=== PATIENT | male | born 1940 | race Caucasian/White ===

== ENCOUNTER 2016-05-12 23:50 | Inpatient (IN) | payer MEDICARE, OTHER ==
--- NOTE | ~2016-05-12 | DS ---
Discharge Summary [facility] [address] [place]. [address] NAME: EVA MANNING : 40 STATUS : DIS IN PAT#: [id number] AGE: 76 ADM/REG DATE : 05/13/16 MR#: [id number] REPORT SERV DATE: 05/20/16 DICTATED BY: DATE: REPORT STATUS : Draft TRANSCRIBED BY: MODL DATE: 05/19/16 ADMISSION DATE: 05/13/2016 DISCHARGE DATE: 05/19/2016 DISCHARGE DIAGNOSES: 1. Acute kidney injury on chronic kidney disease, stage 3. 2. Atrial fibrillation with rapid ventricular response paroxysmal. 3. Influenza B. 4. Diabetes mellitus type 2. 5. Hypertension. 6. Obstructive sleep apnea with BiPAP therapy. 7. History of chronic obstructive pulmonary disease and asthma. 8. Dementia. 9. Chronic lower extremity ulcers. 10.Constipation. 11.Debility. CONSULTING PHYSICIANS: Include Dr. Ayanna Hobbs with Urology. DISCHARGE MEDICATIONS: 1. Januvia 50 mg p.o. b.i.d. 2. Aricept 10 mg p.o. at bedtime. 3. Neurontin 1200 mg p.o. at bedtime. 4. Neurontin 600 mg p.o. daily. 5. Remeron 300 mg p.o. at bedtime. 6. Multivitamin one tablet p.o. daily. 7. Lopressor 25 mg p.o. b.i.d., hold for heart rate less than 60 or systolic blood pressure less than 100. 8. Prilosec 20 mg p.o. b.i.d. 9. Trental 400 mg p.o. b.i.d. 10.Zoloft 100 mg p.o. daily. 11.VESIcare 5 mg p.o. daily. 12.MiraLAX one packet p.o. daily. 13.Klonopin 1 mg p.o. at bedtime. 14.Aleve 220 mg p.o. t.i.d. p.r.n. for pain. 15.[place] 10/325 mg tablet one tablet p.o. t.i.d. p.r.n. for pain. 16.Breo Ellipta one puff inhalation at bedtime. IMAGING: Includes portable chest x-ray which was negative. Renal ultrasound which demonstrated severe bilateral hydronephrosis and severely dilated bladder, diverticulum in the superior right bladder, nonobstructing left nephrolithiasis. Transthoracic echocardiogram was performed. The patient has normal left ventricular systolic function with an estimated ejection fraction of 55% to 60%. Normal right ventricular chamber size and systolic function. No significant valvular regurg or stenosis. Discharge Summary [address] [address] [place]. [address] NAME: EVA MANNING : 40 STATUS : DIS IN PAT#: [id number] AGE: 76 ADM/REG DATE : 05/13/16 MR#: [id number] REPORT SERV DATE: 05/20/16 DICTATED BY: DATE: REPORT STATUS : Draft TRANSCRIBED BY: MODL DATE: 05/19/16 For full H and P, please refer to Dr. Ahmet Ramirez's dictation on 05/12/2016. HOSPITAL COURSE/PROBLEM LIST: 1. Acute kidney injury on chronic kidney disease, stage 3. Based on the renal ultrasound which demonstrated that the patient had a postrenal obstruction causing severe hydronephrosis causing acute kidney injury. Today the patient's creatinine is down to 2.05, his baseline creatinine is around 1.5. He does have a Degroot catheter in place. 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 I have consulted Dr. Hobbs with Urology. The patient will need to be evaluated by him prior to discharge for future recommendations as far as fixing the artificial sphincter as well as whether we should discharge the patient with Degroot catheter or any other recommendations. 2. Atrial fibrillation with RVR. His heart rate is controlled. He is mostly in sinus rhythm. Occasionally has some paroxysmal atrial fibrillation a very short periods of time. His heart rate is controlled with metoprolol [address]., [address] the patient on Eliquis 5 mg p.o. b.i.d., as well. He will follow up as an outpatient with Cardiology. 3. Influenza B. The patient has received symptomatic care. I did start Tamiflu early on diagnosis; however, prior to renal ultrasound I got rid of the Tamiflu thinking he might have an intrarenal problem such as acute tubular necrosis. At any rate the patient's symptoms are better. 4. Diabetes mellitus type 2. We will keep the patient on his oral antidiabetic medications. His blood sugar has been controlled while in the hospital, generally with a blood sugar of 80 to 90. 5. Hypertension. The patient's blood pressure has been controlled. Last blood pressure 146/70. I will continue his metoprolol at discharge. 6. Obstructive sleep apnea with BiPAP. The patient is compliant. He will continue his BiPAP therapy. Follow up as an outpatient. 7. Dementia. The patient is at baseline. I will continue his home medications. 8. Chronic lower extremity ulcers. The patient is seeing Dr. Jimenez and he will follow up with him as an outpatient in the [facility] after discharge. 9. Constipation. This has resolved. We will continue MiraLAX daily as well as docusate. 10.Debility. The patient is being discharged to [facility] for rehabilitation prior to going home. 11.Asthma/COPD. The patient is on chronic O2 at night as well as Breo Ellipta, we will continue these. The patient is hemodynamically stable. Heart rate 77, respiratory rate 18, blood pressure 146/70, temp 97.5, and O2 saturation 97% on 2 L. CLR/MODL Quinton Matthews NP / [id number] Discharge Summary [address] [address] NAME: EVA MANNING : 40 STATUS : DIS IN PAT#: [id number] AGE: 76 ADM/REG DATE : 05/13/16 MR#: [id number] REPORT SERV DATE: 05/20/16 DICTATED BY: DATE: REPORT STATUS : Draft TRANSCRIBED BY: MODL DATE: 05/19/16 CC: MD Yossi Lopez M.D. Daniel Heithold, M.D. Mark Heinsohn, M.D.
--- NOTE | ~2016-05-12 | HP ---
History And Physical [id number] [place]. [address] NAME: EVA PEPPER : 40 STATUS : DIS IN PAT#: [id number] AGE: 76 ADM/REG DATE : 05/13/16 MR#: [id number] REPORT SERV DATE: 06/02/16 DICTATED BY: AHMET RIVERS DATE: 05/13/16 REPORT STATUS : Draft TRANSCRIBED BY: MODL DATE: 05/13/16 DATE OF ADMISSION: 05/12/2016 CHIEF COMPLAINT: Fever and chills. HISTORY OF PRESENT ILLNESS: This is a 76-year-old male with a history of immune- demyelinating motor and sensory neuropathy, familial spastic paraplegia, diabetes mellitus, and hypertension who presents to the emergency room at [facility] with the above-mentioned complaint. History is obtained from the patient, his , who is at bedside, and reviewing data available on the [employer] system. According to Mr. Pepper and his , he had been in his usual state of health until yesterday when he started having fever and shaking chills. His temperature at home was greater than 102 degrees Fahrenheit, and he had shaking as well. He might have been slightly confused as his says he kept insisting that she redo his dressings on the leg ulcer that he has. She was not sure why he was asking so many times. Finally, when he started having chills as well, they decided to come to the emergency room to be evaluated. In the emergency room, he initially presented with a blood pressure of 87/50, which quickly returned to normal range with some fluid bolus. He had cellulitis in his lower extremity, and Hospitalist Service is asked to admit him for further evaluation and treatment. At the time of my evaluation, he denied any chest pain, palpitations, or orthopnea. He had no cough, hemoptysis, night sweats, or weight loss. He denied any falls or loss of consciousness. No history of nausea, vomiting, diarrhea, diaphoresis. No history of hematemesis, hematochezia, or hematuria. No other history of recent travel or exposures. PAST MEDICAL HISTORY: Significant for history of diabetes mellitus type 2, essential hypertension, obstructive sleep apnea on BiPAP at home. He also has a history of immune- demyelinating motor and sensory neuropathy, familial spastic paraplegia, and prostate cancer. He has a history of asthma, chronic kidney disease stage 3, and malnutrition with a PEG placement as well. SOCIAL HISTORY: He has about 50 pack years of smoking and quit one year ago. He denied any recreational drug use or alcohol use. 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 FAMILY HISTORY: Noncontributory. MEDICATIONS: At home were reviewed by me in the chart today and reordered by me. REVIEW OF SYSTEMS: As in history of present illness. All other systems were reviewed in detail and are quite unremarkable. PHYSICAL EXAMINATION: History And Physical [address] [address] NAME: EVA PEPPER : 40 STATUS : DIS IN PAT#: [id number] AGE: 76 ADM/REG DATE : 05/13/16 MR#: [id number] REPORT SERV DATE: 06/02/16 DICTATED BY: AHMET RIVERS DATE: 05/13/16 REPORT STATUS : Draft TRANSCRIBED BY: ALFREDO DATE: 05/13/16 GENERAL: This is a pleasant 76-year old, not in any acute distress. He is alert, awake, oriented to time, place, and person. VITAL SIGNS: His vital signs today showed a temperature of 99 degrees Fahrenheit, pulse 80, respirations 16 a minute, blood pressure was 87/50 upon arrival. Oxygen saturations were 100% breathing 2 L of oxygen via nasal cannula. At the time of my exam, his blood pressure was greater than 139 systolic. HEENT: Head is atraumatic, normocephalic. Pupils are equal, reacting to light and accommodating. External ocular muscles are intact. Membranes are moist and pink. Sclerae are anicteric. NECK: Supple with no jugular venous distention, lymphadenopathy, or thyromegaly. LUNGS: Clear to auscultation with no wheezes, rubs, or crackles. HEART: Heart sounds were regular with no murmurs, rubs, or gallops. ABDOMEN: Soft, nontender. Bowel sounds present. EXTREMITIES: Examination of his lower extremities did not reveal any an acute edema, cyanosis, or clubbing. There are nonhealing ulcers in both lower extremities with very little discharge. There is redness and swelling in time in the area as well. NEUROLOGIC: Grossly intact. No focal sensory or motor deficits. Higher functions appeared intact. Gait was not examined. LABORATORY DATA: Reviewed on the [employer] system today showed a sodium of 141, potassium 4.7, chloride 108, CO2 of 25, BUN was 17 with a creatinine of 1.50, which is about his baseline. Blood glucose was 99 today. His lactate was 1.0. CBC showed white blood cell count of 7700, hemoglobin was 9.6, hematocrit 30.0, and platelet count was 165,000. His prothrombin time was 15.1 with an INR of 1.2. Urinalysis was unremarkable today. Films of the chest x-ray were reviewed by me on the PACS today and interpreted by me. Per my interpretation, there was normal bony architecture with no cardiomegaly. Lung pemberton were clear without any lobar consolidations or effusions. When compared to prior films available on PACs, today's films did not show any acute or significant change. IMPRESSION: 1. Fever and chills. 2. Cellulitis of the lower extremity. 3. Diabetes mellitus type 2. 4. Hypertension. 5. Obstructive sleep apnea on BiPAP therapy. 6. Asthma and chronic obstructive pulmonary disease. 7. Chronic kidney disease stage III, stable. 8. Malnutrition with the percutaneous endoscopic gastrostomy tube. PLAN: We will admit Mr. Pepper to the Hospitalist Service with [facility]. We will obtain cultures, start him on empiric IV antibiotics as he has about 10 bands now. We will go ahead and check his procalcitonin level as well. We will start him on blood sugar control with NovoLog given subcutaneously per sliding scale and check his A1c. We will also get chemistry electrolytes and replace as needed. For his lower extremity ulcers, we will consult Dr. Jimenez to see him in the morning. He has been under Dr. Jimenez's care all this time. Meanwhile, we will maximize the bronchodilator treatments and continue supplemental oxygen therapy. He had may continue his BiPAP while here as well. He will be History And Physical [address] [address] NAME: EVA PEPPER : 40 STATUS : DIS IN PAT#: [id number] AGE: 76 ADM/REG DATE : 05/13/16 MR#: [id number] REPORT SERV DATE: 06/02/16 DICTATED BY: AHMET RIVERS DATE: 05/13/16 REPORT STATUS : Draft TRANSCRIBED BY: ALFREDO DATE: 05/13/16 on unfractionated heparin for DVT prophylaxis while here. I have discussed the above plans with the patient and his . Questions were answered and they are agreeable to the above recommendations. Hospitalist Service will be following him during his stay here. /ALFREDO Ahmet Rivers M.D. / [id number] / [id number] CC: Yossi Aviles M.D.
--- NOTE | ~2016-05-12 | CN ---
Consultation Report [facility] [address] [place]. [address] NAME: EVA PEPPER : 40 STATUS : DIS IN PAT#: [id number] AGE: 76 ADM/REG DATE : 05/13/16 MR#: [id number] REPORT SERV DATE: 05/19/16 DICTATED BY: BONILLA FRANCISCO JR. DATE: 05/19/16 REPORT STATUS : Draft TRANSCRIBED BY: MODParul DATE: 05/19/16 DATE OF CONSULTATION: 05/19/2016 CHIEF COMPLAINT: Urinary retention. 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 Andrew Snyder. He has a history of prostate cancer, Adilson 6, status post prostatectomy at [facility] in 2006. He had postoperative ED and stress urinary incontinence. He had a sphincter placed, which was removed secondary to infection; 2 penile prostheses, both removed, secondary to infection and malfunction. He had a second sphincter placed, which has been in place since 2006 and has worked well for him since that time. He was admitted to the hospital on 05/12/2016 with cellulitis and shaking chills with a fever of 102 and was diagnosed with the flu along with the cellulitis. He began having difficulties with being unable to empty his bladder even though the sphincter seemed to be working appropriately as it had been for the past many years. However, he had a palpable bladder. A 16-English Degroot catheter was placed with some difficulty according to the patient's family, but eventually, 2000 mL were removed from the bladder with placement of his Degroot catheter. He has a history of an immune demyelinating motor and sensory neuropathy. He is in a wheelchair. He has a history of diabetes type 2; essential hypertension; obstructive sleep apnea, on BiPAP at home; familial spastic paraplegia and prostate cancer; asthma; chronic kidney disease, stage III; malnutrition with PEG as well. SOCIAL HISTORY: He has a 50 pack year smoking history. Quit last year. He denies any recreational drug use or alcohol use. FAMILY HISTORY: Noncontributory. HOME MEDICATIONS: Listed in the chart. Please review for details. REVIEW OF SYSTEMS: A 10-system review was performed, was essentially negative other than that stated above. PHYSICAL EXAMINATION: GENERAL: Well-nourished, well-developed male. HEENT: Normocephalic, atraumatic. NECK: Symmetric. CHEST: Clear to auscultation bilaterally. HEART: Regular rate and rhythm. ABDOMEN: Soft, nontender, nondistended without palpable hernias. GENITOURINARY EXAM: Reveals a normal male, uncircumcised phallus. He has a sphincter pump in the right hemiscrotum which is in the deactivated mode currently. This was done by the patient's , who is a nurse prior to placement of the Degroot catheter. He has a Degroot catheter in place draining clear urine, 16-English in size. LABORATORY: Electrolytes today are within normal limits. BUN of 27 and creatinine 2.05. Consultation Report [address] [place]. [address] NAME: EVA PEPPER : 40 STATUS : DIS IN PAT#: [id number] AGE: 76 ADM/REG DATE : 05/13/16 MR#: [id number] REPORT SERV DATE: 05/19/16 DICTATED BY: BONILLA FRANCISCO JR. DATE: 05/19/16 REPORT STATUS : Draft TRANSCRIBED BY: ALFREDO DATE: 05/19/16 Blood cultures are negative at four days. White blood cell count 8.4 on 05/17/2016. 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 RECOMMENDATIONS: He has multiple risk factors for neurogenic bladder including the diabetes and the demyelinating disorder. He still should be able to empty his bladder with a Crede maneuver unless he has a bladder neck contracture or urethral stricture. The sphincter does seem to be working appropriately. This could be a longstanding problem and part of the cause of his renal insufficiency. Due to the risk of infection and erosion, I recommended changing the catheter from 16-English to a 14-English catheter which I did at the bedside. We will leave his catheter in for the next few weeks while he goes to rehabilitation for rehab after his cellulitis and flu episode. We will plan on cystoscopy in the office when he returns if possible. He may be unable to get up into the cystoscopy chair, and we may have to do it here at the hospital. I explained all this to the patient and his . They both expressed understanding. Their questions were answered to their satisfaction. SHUBHAM/ALFREDO Bonilla Francisco Jr., M.D. / [id number] CC: MD Yossi Lopez M.D.
--- NOTE | ~2016-05-12 | HP ---
History And Physical [address] [address] NAME: EVA PEPPER : 40 STATUS : ADM IN [facility]#: [id number] AGE: 76 ADM/REG DATE : 05/13/16 MR#: [id number] REPORT SERV DATE: 05/13/16 DICTATED BY: AHMET RIVERS DATE: 05/13/16 REPORT STATUS : Draft TRANSCRIBED BY: MODL DATE: 05/13/16 DATE OF ADMISSION: 05/13/2016 CONTINUATION: PHYSICAL EXAMINATION: EXTREMITIES: Examination of his lower extremities did not reveal any an acute edema, cyanosis, or clubbing. There are nonhealing ulcers in both lower extremities with very little discharge. There is redness and swelling in time in the area as well. NEUROLOGIC: Grossly intact. No focal sensory or motor deficits. Higher functions appeared intact. Gait was not examined. VITAL SIGNS: His vital signs today showed a temperature of 99 degrees Fahrenheit, pulse 80, respirations 16 a minute, blood pressure was 87/50 upon arrival. Oxygen saturations were 100% breathing 2 L of oxygen via nasal cannula. At the time of my exam, his blood pressure was greater than 139 systolic. LABORATORY DATA: Reviewed on the [employer] system today showed a sodium of 141, potassium 4.7, chloride 108, CO2 of 25, BUN was 17 with a creatinine of 1.50, which is about his baseline. Blood glucose was 99 today. His lactate was 1.0. CBC showed white blood cell count of 7700, hemoglobin was 9.6, hematocrit 30.0, and platelet count was 165,000. His prothrombin time was 15.1 with an INR of 1.2. Urinalysis was unremarkable today. Films of the chest x-ray were reviewed by me on the PACS today and interpreted by me. Per my interpretation, there was normal bony architecture with no cardiomegaly. Lung pemberton were clear without any lobar consolidations or effusions. When compared to prior films available on PACs, today's films did not show any acute or significant change. IMPRESSION: 1. Fever and chills. 2. Cellulitis of the lower extremity. 3. Diabetes mellitus type 2. 4. Hypertension. 5. Obstructive sleep apnea on BiPAP therapy. 6. Asthma and chronic obstructive pulmonary disease. 7. Chronic kidney disease stage III, stable. 8. Malnutrition with the percutaneous endoscopic gastrostomy tube. PLAN: We will admit Mr. Pepper to the Hospitalist Service with the [facility] tele bed. We will obtain cultures, start him on empiric IV antibiotics as he has about 10 bands now. We will go ahead and check his procalcitonin level as well. We will start him on blood sugar control with NovoLog given subcutaneously per sliding scale and check his A1c. We will also get chemistry electrolytes and replace as needed. For his lower extremity ulcers, we will consult Dr. Jimenez to see him in the morning. He has been under Dr. Jimenez's care all this time. Meanwhile, we will maximize the bronchodilator treatments and continue supplemental oxygen therapy. He had may continue his BiPAP while here as well. He will be on unfractionated heparin for DVT prophylaxis while here. I have discussed the above plans with the patient and his . Questions were answered and they are agreeable to the above History And Physical [address] [address] NAME: EVA PEPPER : 40 STATUS : ADM IN [facility]#: [id number] AGE: 76 ADM/REG DATE : 05/13/16 MR#: [id number] REPORT SERV DATE: 05/13/16 DICTATED BY: AHMET RIVERS DATE: 05/13/16 REPORT STATUS : Draft TRANSCRIBED BY: ALFREDO DATE: 05/13/16 recommendations. Hospitalist Service will be following him during his stay here. /ALFREDO Ahmet Rivers M.D. / [id number] CC: Bell Vergara M.D.
[~2016-05-12 23:50] MED LIST: ABILIFY10 PO; ABILIFY15 PO; ALEVE220 MG PO; AMOXIL500 MG PO; ARICEPT10 PO; ASAB PO; ASMANEX INH; BACDS PO; CIP5 PO; CITRACAL PO; CRESTOR20 MG PO; CYMBALTA20 PO; DULERA 100 MCG/13 GM INH; DULERA 200 MCG/13 GM INH; DURICEFSUS PO; ENDOCET1 TA2 PO; FLUNISOLIDE29 MCG; FORADIL INH; FORTAMET500 MG PO; HALF81 PO; JANUVIA50 PO; KLONO1 PO; LEVAQUIN5T PO; LEVAQUIN750 MG PO; LOPID6 PO; LOTE10 PO; MIRALAXPKT PO; MULTIPLE VIT PO; MULTIVITAMI1 PO; NASAREL29 MCG NAS; NEUR600 PO; NIACIN 500 PO; NORCO1 TAB PO; ORAMORPH SR30 MG PO; PREV30 PO; PRILO PO; PROAIR HFA INH; PROVENTSOL INH; PROVHFA INH; REG PO; REMERON30 MG PO; SEREVDISC INH; TOF50 PO; TOFRA100PM PO; TRENTAL400 PO; VESICARE10 MG PO; VESICARE5 PO; VITAMIN D1000 UNI1 PO; XOPENEX0.31 MG INH; ZINC220C PO; ZOL100 PO; [UNRECOGNIZED DRUG - CODE] IM
[2016-05-13 00:45] LABS: BASOPHILS 0.5 %; BASOPHILS ABSOLUTE 0.04 10/3/uL (0.0-0.16); EOSINOPHILS 1.7 %; EOSINOPHILS ABSOLUTE 0.13 10/3/uL (0.0-0.53); ER CBC TAT 0 Hrs 05 Mins; HEMOGLOBIN 9.6 g/dL (13.6-17.8); IMMATURE GRANULOCYTES 0.3 %; IMMATURE GRANULOCYTES ABSOLUTE 0.02 10/3/uL (0.0-0.11); LYMPHOCYTES 10.4 %; MANUAL DIFF NO %; MEAN CORPUSCULAR HEMOGLOB 26.2 pg (26.0-34.0); MEAN PLATELET VOLUME 9.3 fL (9.2-13.0); MONOCYTES 9.2 %; MONOCYTES ABSOLUTE 0.71 10/3/uL (0.21-1.20); NEUTROPHILS 77.9 %; NEUTROPHILS ABSOLUTE 5.98 10/3/uL (2.02-8.40); PLATELET COUNT 165 10/3/uL (150-400); RBC DISTRIBUTION WIDTH 15.7 % (12.0-16.0); RED CELL COUNT 3.66 10/6/uL (4.7-6.1); WHITE BLOOD CELLS 7.7 10/3/uL (4.5-10.5)
[2016-05-13 00:53] LABS: INTERNATIONAL NORMAL RATI 1.2 UNITS (-); PROTIME (NOT ORD) 15.1 SEC (12.0-14.5)
[2016-05-13 00:54] LABS: PARTIAL THROMBO TIME 36.7 SEC (22.5-37.2)
[2016-05-13 00:59] LABS: CHLORIDE, SERUM 108 MMOL/L (96-112); GFR AFRICAN AMERICAN 52 ML/MIN (>=60); GFR NON AFRICAN AMERICAN 45 ML/MIN (>=60); POTASSIUM, SERUM 4.7 MMOL/L (3.5-5.3); SGOT(AST) 29 U/L (5-40); SGPT(ALT) 20 U/L (5-65); SODIUM, SERUM 141 MMOL/L (135-148); TOTAL BILIRUBIN 0.2 MG/DL (0-1.2); TOTAL PROTEIN 6.7 G/DL (6.0-8.5)
[2016-05-13 01:00] LABS: A/G RATIO 0.7 (0.7-1.9); ALBUMIN 2.8 G/DL (3.5-5.0); ALKALINE PHOSPHATASE 130 U/L (45-117); BUN (BLOOD UREA NITROGEN) 27 MG/DL (6-23); CALCIUM, SERUM 7.7 MG/DL (8.5-10.4); CO2 (CARBON DIOXIDE) 25 MMOL/L (24-34); GLOBULIN 3.9 G/DL (2.5-4.1); GLUCOSE, SERUM 99 MG/DL (60-99)
[2016-05-13 01:20] LABS: BAND NEUTROPHILS 10 %; ER DIFF TAT 0 Hrs 40 Mins; LYMPHOCYTES 7 %; LYMPHOCYTES ABSOLUTE (CALC) 0.54 10/3/uL (0.67-4.30); MONOCYTES 3 %; MONOCYTES ABSOLUTE (CALC) 0.23 10/3/uL (0.21-1.20); NEUTROPHILS ABSOLUTE (CALC) 6.93 10/3/uL (2.02-8.40); PLATELET ESTIMATE ADQ (ADEQUATE); SEGMENTED NEUTROPHIL (0) 80 %; TOTAL NUCLEATED CELLS 100
[2016-05-13 01:21] LABS: RBC MORPHOLOGY NORM (NORMAL)
[2016-05-13 02:09] LABS: ASCORBIC ACID (UR NOT ORDER) NEG (NEG); BILIRUBIN, URINE NEGATIVE (NEG); ER URINALYSIS TAT 0 Hrs 00 Mins; KETONE, URINE NEGATIVE (NEG); LEUKOCYTE ESTERASE(NOT OR NEG (NEG); NITRITE (URINE) NEG (NEG); WBC (NOT ORDERED) (RFLEX) 1 (0-5)
[2016-05-13] MEDS ORDERED: KLONO1 PO (04:13)
[2016-05-13] MEDS ORDERED: ALEVE220 MG PO (04:13)
[2016-05-13] MEDS ORDERED: ARICEPT10 PO (04:13)
[2016-05-13] MEDS ORDERED: NEUR600 PO ×2 (04:17)
[2016-05-13] MEDS ORDERED: NORCO1 TAB PO (04:18)
[2016-05-13] MEDS ORDERED: REMERON30 MG PO (04:18)
[2016-05-13] MEDS ORDERED: PRILO PO (04:19)
[2016-05-13] MEDS ORDERED: SYMBICORT 160/41 INH INH (04:19)
[2016-05-13] MEDS ORDERED: MULTIVIT/MIN PO (04:19)
[2016-05-13] MEDS ORDERED: ZOL100 PO (04:20)
[2016-05-13] MEDS ORDERED: JANUVIA50 PO (04:20)
[2016-05-13] MEDS ORDERED: VESICARE5 PO (04:21)
[2016-05-13] MEDS ORDERED: TRENTAL400 PO (04:21)
[2016-05-13 15:39] LABS: INFLUENZA A SCREEN NEGATIVE (NEGATIVE)
[2016-05-13 15:40] LABS: INFLUENZA B SCREEN POSITIVE (NEGATIVE)
[2016-05-14 07:10] LABS: BASOPHILS 0.2 %; BASOPHILS ABSOLUTE 0.01 10/3/uL (0.0-0.16); EOSINOPHILS 2.5 %; EOSINOPHILS ABSOLUTE 0.16 10/3/uL (0.0-0.53); HEMATOCRIT 30.9 % (40.0-51.0); HEMOGLOBIN 9.7 g/dL (13.6-17.8); IMMATURE GRANULOCYTES 0.2 %; IMMATURE GRANULOCYTES ABSOLUTE 0.01 10/3/uL (0.0-0.11); LYMPHOCYTES 16.1 %; LYMPHOCYTES ABSOLUTE 1.01 10/3/uL (0.67-4.30); MANUAL DIFF NO %; MEAN CORPUS HGB CONC 31.4 g/dL (32.0-36.0); MEAN CORPUSCULAR HEMOGLOB 26.4 pg (26.0-34.0); MEAN PLATELET VOLUME 9.4 fL (9.2-13.0); MONOCYTES ABSOLUTE 0.63 10/3/uL (0.21-1.20); NEUTROPHILS ABSOLUTE 4.47 10/3/uL (2.02-8.40); PLATELET COUNT 172 10/3/uL (150-400); RBC DISTRIBUTION WIDTH 16.1 % (12.0-16.0); RED CELL COUNT 3.68 10/6/uL (4.7-6.1); WHITE BLOOD CELLS 6.3 10/3/uL (4.5-10.5)
[2016-05-14 07:28] LABS: BUN (BLOOD UREA NITROGEN) 23 MG/DL (6-23); CALCIUM, SERUM 7.8 MG/DL (8.5-10.4); CHLORIDE, SERUM 106 MMOL/L (96-112); CO2 (CARBON DIOXIDE) 23 MMOL/L (24-34); CREATININE 1.67 MG/DL (0.70-1.30); GFR AFRICAN AMERICAN 45 ML/MIN (>=60); GFR NON AFRICAN AMERICAN 39 ML/MIN (>=60); GLUCOSE, SERUM 86 MG/DL (60-99); PHOSPHORUS, SERUM 3.9 MG/DL (2.5-4.5); POTASSIUM, SERUM 4.2 MMOL/L (3.5-5.3); SODIUM, SERUM 140 MMOL/L (135-148)
[2016-05-15 05:12] LABS: BASOPHILS 0.1 %; BASOPHILS ABSOLUTE 0.01 10/3/uL (0.0-0.16); EOSINOPHILS 1.5 %; EOSINOPHILS ABSOLUTE 0.11 10/3/uL (0.0-0.53); HEMATOCRIT 31.7 % (40.0-51.0); IMMATURE GRANULOCYTES 0.3 %; IMMATURE GRANULOCYTES ABSOLUTE 0.02 10/3/uL (0.0-0.11); LYMPHOCYTES 14.8 %; LYMPHOCYTES ABSOLUTE 1.08 10/3/uL (0.67-4.30); MEAN CORPUS HGB CONC 31.5 g/dL (32.0-36.0); MEAN CORPUSCULAR VOLUME 82.3 fL (80-100); MEAN PLATELET VOLUME 9.7 fL (9.2-13.0); MONOCYTES 10.3 %; MONOCYTES ABSOLUTE 0.75 10/3/uL (0.21-1.20); NEUTROPHILS ABSOLUTE 5.31 10/3/uL (2.02-8.40); PLATELET COUNT 184 10/3/uL (150-400); RBC DISTRIBUTION WIDTH 16.1 % (12.0-16.0); RED CELL COUNT 3.85 10/6/uL (4.7-6.1); WHITE BLOOD CELLS 7.3 10/3/uL (4.5-10.5)
[2016-05-15 05:14] LABS: MANUAL DIFF NO %
[2016-05-15 05:26] LABS: BUN (BLOOD UREA NITROGEN) 26 MG/DL (6-23); CALCIUM, SERUM 8.6 MG/DL (8.5-10.4); CHLORIDE, SERUM 111 MMOL/L (96-112); CO2 (CARBON DIOXIDE) 22 MMOL/L (24-34); CREATININE 2.08 MG/DL (0.70-1.30); GFR AFRICAN AMERICAN 35 ML/MIN (>=60); GFR NON AFRICAN AMERICAN 30 ML/MIN (>=60); GLUCOSE, SERUM 107 MG/DL (60-99); PHOSPHORUS, SERUM 3.7 MG/DL (2.5-4.5); POTASSIUM, SERUM 4.6 MMOL/L (3.5-5.3); SODIUM, SERUM 145 MMOL/L (135-148)
[2016-05-15 15:26] LABS: BUN (BLOOD UREA NITROGEN) 28 MG/DL (6-23); CALCIUM, SERUM 8.4 MG/DL (8.5-10.4); CHLORIDE, SERUM 109 MMOL/L (96-112); CO2 (CARBON DIOXIDE) 26 MMOL/L (24-34); CREATININE 2.47 MG/DL (0.70-1.30); GFR AFRICAN AMERICAN 28 ML/MIN (>=60); GFR NON AFRICAN AMERICAN 24 ML/MIN (>=60); GLUCOSE, SERUM 118 MG/DL (60-99); POTASSIUM, SERUM 4.8 MMOL/L (3.5-5.3); SODIUM, SERUM 143 MMOL/L (135-148)
[2016-05-16 05:42] LABS: BASOPHILS 0.2 %; BASOPHILS ABSOLUTE 0.02 10/3/uL (0.0-0.16); EOSINOPHILS 0.7 %; EOSINOPHILS ABSOLUTE 0.06 10/3/uL (0.0-0.53); HEMATOCRIT 30.4 % (40.0-51.0); HEMOGLOBIN 9.8 g/dL (13.6-17.8); IMMATURE GRANULOCYTES 0.2 %; IMMATURE GRANULOCYTES ABSOLUTE 0.02 10/3/uL (0.0-0.11); LYMPHOCYTES 14.2 %; LYMPHOCYTES ABSOLUTE 1.19 10/3/uL (0.67-4.30); MEAN CORPUS HGB CONC 32.2 g/dL (32.0-36.0); MEAN CORPUSCULAR HEMOGLOB 26.1 pg (26.0-34.0); MEAN CORPUSCULAR VOLUME 81.1 fL (80-100); MEAN PLATELET VOLUME 9.6 fL (9.2-13.0); MONOCYTES 10.2 %; MONOCYTES ABSOLUTE 0.86 10/3/uL (0.21-1.20); NEUTROPHILS 74.5 %; NEUTROPHILS ABSOLUTE 6.25 10/3/uL (2.02-8.40); PLATELET COUNT 167 10/3/uL (150-400); RBC DISTRIBUTION WIDTH 16.1 % (12.0-16.0); RED CELL COUNT 3.75 10/6/uL (4.7-6.1); WHITE BLOOD CELLS 8.4 10/3/uL (4.5-10.5)
[2016-05-16 05:45] LABS: MANUAL DIFF NO %
[2016-05-16 05:53] LABS: BUN (BLOOD UREA NITROGEN) 29 MG/DL (6-23); CALCIUM, SERUM 8.1 MG/DL (8.5-10.4); CHLORIDE, SERUM 109 MMOL/L (96-112); CO2 (CARBON DIOXIDE) 23 MMOL/L (24-34); CREATININE 2.45 MG/DL (0.70-1.30); GFR AFRICAN AMERICAN 29 ML/MIN (>=60); GFR NON AFRICAN AMERICAN 25 ML/MIN (>=60); GLUCOSE, SERUM 95 MG/DL (60-99); PHOSPHORUS, SERUM 4.1 MG/DL (2.5-4.5); POTASSIUM, SERUM 4.5 MMOL/L (3.5-5.3); SODIUM, SERUM 142 MMOL/L (135-148)
[2016-05-16 15:50] LABS: BUN (BLOOD UREA NITROGEN) 31 MG/DL (6-23); CALCIUM, SERUM 8.5 MG/DL (8.5-10.4); CHLORIDE, SERUM 111 MMOL/L (96-112); CO2 (CARBON DIOXIDE) 25 MMOL/L (24-34); CREATININE 2.55 MG/DL (0.70-1.30); GFR AFRICAN AMERICAN 27 ML/MIN (>=60); GFR NON AFRICAN AMERICAN 23 ML/MIN (>=60); GLUCOSE, SERUM 111 MG/DL (60-99); POTASSIUM, SERUM 4.8 MMOL/L (3.5-5.3); SODIUM, SERUM 145 MMOL/L (135-148)
[2016-05-16 21:20] LABS: WBC (NOT ORDERED) (RFLEX) 0 (0-5)
[2016-05-16 21:28] LABS: ASCORBIC ACID (UR NOT ORDER) NEG (NEG); BILIRUBIN, URINE NEGATIVE (NEG); KETONE, URINE NEGATIVE (NEG); LEUKOCYTE ESTERASE(NOT OR NEG (NEG)
[2016-05-16 21:43] LABS: CREATININE, URINE 29.9 MG/DL
[2016-05-17 05:05] LABS: BASOPHILS 0.2 %; BASOPHILS ABSOLUTE 0.02 10/3/uL (0.0-0.16); EOSINOPHILS 3.1 %; EOSINOPHILS ABSOLUTE 0.26 10/3/uL (0.0-0.53); HEMATOCRIT 29.4 % (40.0-51.0); HEMOGLOBIN 9.1 g/dL (13.6-17.8); IMMATURE GRANULOCYTES 0.1 %; IMMATURE GRANULOCYTES ABSOLUTE 0.01 10/3/uL (0.0-0.11); LYMPHOCYTES 13.1 %; MEAN CORPUSCULAR HEMOGLOB 25.2 pg (26.0-34.0); MEAN CORPUSCULAR VOLUME 81.4 fL (80-100); MEAN PLATELET VOLUME 9.4 fL (9.2-13.0); MONOCYTES 8.9 %; MONOCYTES ABSOLUTE 0.75 10/3/uL (0.21-1.20); NEUTROPHILS 74.6 %; NEUTROPHILS ABSOLUTE 6.24 10/3/uL (2.02-8.40); PLATELET COUNT 158 10/3/uL (150-400); RBC DISTRIBUTION WIDTH 16.2 % (12.0-16.0); RED CELL COUNT 3.61 10/6/uL (4.7-6.1); WHITE BLOOD CELLS 8.4 10/3/uL (4.5-10.5)
[2016-05-17 05:08] LABS: MANUAL DIFF NO %
[2016-05-17 05:21] LABS: BUN (BLOOD UREA NITROGEN) 32 MG/DL (6-23); CALCIUM, SERUM 8.3 MG/DL (8.5-10.4); CHLORIDE, SERUM 110 MMOL/L (96-112); CO2 (CARBON DIOXIDE) 25 MMOL/L (24-34); CREATININE 2.58 MG/DL (0.70-1.30); GFR AFRICAN AMERICAN 27 ML/MIN (>=60); GFR NON AFRICAN AMERICAN 23 ML/MIN (>=60); GLUCOSE, SERUM 95 MG/DL (60-99); PHOSPHORUS, SERUM 4.1 MG/DL (2.5-4.5); POTASSIUM, SERUM 4.8 MMOL/L (3.5-5.3); SODIUM, SERUM 146 MMOL/L (135-148)
[2016-05-18 04:52] LABS: BUN (BLOOD UREA NITROGEN) 32 MG/DL (6-23); CHLORIDE, SERUM 111 MMOL/L (96-112); CO2 (CARBON DIOXIDE) 26 MMOL/L (24-34); CREATININE 2.49 MG/DL (0.70-1.30); GFR AFRICAN AMERICAN 28 ML/MIN (>=60); GFR NON AFRICAN AMERICAN 24 ML/MIN (>=60); GLUCOSE, SERUM 83 MG/DL (60-99); POTASSIUM, SERUM 4.6 MMOL/L (3.5-5.3); SODIUM, SERUM 147 MMOL/L (135-148)
[2016-05-19 04:44] LABS: CALCIUM, SERUM 8.4 MG/DL (8.5-10.4); CHLORIDE, SERUM 109 MMOL/L (96-112); CO2 (CARBON DIOXIDE) 25 MMOL/L (24-34); CREATININE 2.05 MG/DL (0.70-1.30); GFR AFRICAN AMERICAN 35 ML/MIN (>=60); GFR NON AFRICAN AMERICAN 31 ML/MIN (>=60); GLUCOSE, SERUM 80 MG/DL (60-99); POTASSIUM, SERUM 4.1 MMOL/L (3.5-5.3); SODIUM, SERUM 145 MMOL/L (135-148)
[2016-05-19 04:47] LABS: BUN (BLOOD UREA NITROGEN) 27 MG/DL (6-23)
[2016-09-09] MEDS ORDERED: OS500+D PO (08:15)
[2016-09-09] MEDS ORDERED: CAT1 PO (08:16)
[2016-09-09] MEDS ORDERED: COLACEUDL PO (08:17)
[2016-09-09] MEDS ORDERED: ARICEPT10 PO (08:18)
[2016-09-09] MEDS ORDERED: EZFE 200200 MG PO (08:19)
[2016-09-09] MEDS ORDERED: L20 PO (08:20)
[2016-09-09] MEDS ORDERED: REG PO (08:26)
[2016-09-09] MEDS ORDERED: KLOR-CON M2020 MEQ PO (08:26)
[2016-11-13] MEDS ORDERED: PROAIR HFA INH (09:01)
[2016-11-13] MEDS ORDERED: BACTRIM DS1 TAB PO (09:02)
== END 2016-05-19 17:18 | DRG 683 ==
LOC: ER 23:50 → 7NO 05-13 04:58
PROVIDERS: Internal Medicine; Internal Medicine Pulmonary Disease; Nurse Practitioner Acute Care
DX: N17.9 Acute kidney failure, unspecified (principal); E46 Unspecified protein-calorie malnutrition; E11.22 Type 2 diabetes mellitus with diabetic chronic kidney disease; G11.4 Hereditary spastic paraplegia; I48.0 Paroxysmal atrial fibrillation; J44.9 Chronic obstructive pulmonary disease, unspecified; G30.9 Alzheimer's disease, unspecified; I12.9 Hypertensive chronic kidney disease with stage 1 through stage 4 chronic kidney disease, or unspecified chronic kidney disease; F02.80 Dementia in other diseases classified elsewhere, unspecified severity, without behavioral disturbance, psychotic disturbance, mood disturbance, and anxiety; N18.3 Chronic kidney disease, stage 3 (moderate); J10.1 Influenza due to other identified influenza virus with other respiratory manifestations; J45.909 Unspecified asthma, uncomplicated; K59.00 Constipation, unspecified; G47.33 Obstructive sleep apnea (adult) (pediatric); B95.62 Methicillin resistant Staphylococcus aureus infection as the cause of diseases classified elsewhere; N13.1 Hydronephrosis with ureteral stricture, not elsewhere classified; Z85.46 Personal history of malignant neoplasm of prostate; Z87.891 Personal history of nicotine dependence; Z93.1 Gastrostomy status
CPT/HCPCS: 71010; 76775; 80048; 80053; 80202; 81001; 82570; 82962; 83036; 83605; 83690; 83735; 84100; 84145; 84300; 84484; 85025; 85610; 85730; 87040; 87070; 87077; 87186; 87205; 87804; 93005; 93306; 94640; 97161-GP; 97530-GP; 99285; A9270-GY; G8978-CM-GP; G8979-CK-GP; J0360; J2543; J3370

== ENCOUNTER 2016-06-13 06:58 | Day surgery (SDC) | payer MEDICARE, OTHER ==
--- NOTE | ~2016-06-13 | OP ---
Record Of Operation [facility] [address] [place]. [address] NAME: EVA PEPPER : 40 STATUS : [facility] PAT#: [id number] AGE: 76 ADM/REG DATE : 06/13/16 MR#: [id number] REPORT SERV DATE: 06/13/16 DICTATED BY: BONILLA FRANCISCO JR. DATE: 06/13/16 REPORT STATUS : Draft TRANSCRIBED BY: MODL DATE: 06/13/16 DATE OF PROCEDURE: 06/13/2016 SURGEON: Bonilla Francisco M.D. PREOPERATIVE DIAGNOSIS: Dysfunctional artificial urinary sphincter and urinary retention. POSTOPERATIVE DIAGNOSIS: Normal artificial urinary sphincter and urinary retention. COMPLICATIONS: None. CONSULTATIONS: None. ANESTHESIA: IV conscious sedation. SPECIMENS: None. DRAINS: A 14-Panamanian Degroot catheter. ESTIMATED BLOOD LOSS: None. 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 He was having difficulties emptying his bladder and the nurses on the floor were unable to catheterize him. I attempted to catheterize him myself with the sphincter deactivated and was unable to do so without significant difficulty. I was able to get a 12-Panamanian catheter in the bladder at that time and he has been doing reasonably well with a Degroot catheter. He comes back today for further evaluation of his sphincter and to decide on long-term management strategies. PROCEDURE IN DETAIL: After the patient was identified and proper informed consent was obtained, he was taken to the operating room, IV conscious sedation was performed, and a flexible cystoscopy was then performed. Flexible cystoscopy revealed the sphincter to be intact. There was no mucosal injury or mucosal erosion. There were no strictures evident. The sphincter had remained deactivated over the past few weeks. The flexible cystoscope passed through the sphincter easily and there were no bladder neck contracture. The bladder mucosa was examined and found to be normal. There were no tumors, diverticula, or stones. At that point, I removed the cystoscope and activated the sphincter and then washes the sphincter close under direct vision with the flexible cystoscope. Once it was completely closed, I cycled the sphincter and it seemed to work just fine. It did take approximately three minutes for it to coapted completely. I then deactivated the sphincter once again and replaced a 14-Panamanian catheter at this time, however, he will keep the catheter over the weekend, remove the catheter on Thursday, and reactivate the sphincter. We will also performed straight catheterization on a as needed basis. The patient was awakened in the operating room and transferred to the postanesthesia care unit in stable condition. Record Of Operation [place] [id number] [place]. [address] NAME: EVA PEPPER : 40 STATUS : [facility] PAT#: [id number] AGE: 76 ADM/REG DATE : 06/13/16 MR#: [id number] REPORT SERV DATE: 06/13/16 DICTATED BY: BONILLA FRANCISCO JR. DATE: 06/13/16 REPORT STATUS : Draft TRANSCRIBED BY: ALFREDO DATE: 06/13/16 SHUBHMA/ALFREDO Bonilla Francisco Jr., M.D. / [id number] CC: Bell Escalona Jr., M.D.
[~2016-06-13 06:58] MED LIST changes: +MULTIVIT/MIN PO; +SYMBICORT 160/41 INH INH
[2016-06-13 07:27] LABS: HEMATOCRIT 31.3 % (40.0-51.0); HEMOGLOBIN 9.9 g/dL (13.6-17.8)
[2016-06-13 07:53] LABS: BUN (BLOOD UREA NITROGEN) 27 MG/DL (6-23); CALCIUM, SERUM 8.3 MG/DL (8.5-10.4); CHLORIDE, SERUM 106 MMOL/L (96-112); CO2 (CARBON DIOXIDE) 30 MMOL/L (24-34); CREATININE 1.54 MG/DL (0.70-1.30); GFR AFRICAN AMERICAN 50 ML/MIN (>=60); GFR NON AFRICAN AMERICAN 43 ML/MIN (>=60); GLUCOSE, SERUM 101 MG/DL (60-99); POTASSIUM, SERUM 4.1 MMOL/L (3.5-5.3); SODIUM, SERUM 142 MMOL/L (135-148)
[2016-09-09] MEDS ORDERED: OS500+D PO (08:15)
[2016-09-09] MEDS ORDERED: CAT1 PO (08:16)
[2016-09-09] MEDS ORDERED: COLACEUDL PO (08:17)
[2016-09-09] MEDS ORDERED: ARICEPT10 PO (08:18)
[2016-09-09] MEDS ORDERED: EZFE 200200 MG PO (08:19)
[2016-09-09] MEDS ORDERED: L20 PO (08:20)
[2016-09-09] MEDS ORDERED: REG PO (08:26)
[2016-09-09] MEDS ORDERED: KLOR-CON M2020 MEQ PO (08:26)
[2016-11-13] MEDS ORDERED: PROAIR HFA INH (09:01)
[2016-11-13] MEDS ORDERED: BACTRIM DS1 TAB PO (09:02)
== END 2016-06-13 17:31 | disposition home or self-care (01) ==
LOC: SDC 06:58
PROVIDERS: Urology
PROC: 0TJB8ZZ Inspection of Bladder, Via Natural or Artificial Opening Endoscopic (ICD-10-PCS; principal; 2016-06-13 09:00)
DX: T83.111A Breakdown (mechanical) of implanted urinary sphincter, initial encounter (principal); R33.9 Retention of urine, unspecified; F32.9 Major depressive disorder, single episode, unspecified; J44.9 Chronic obstructive pulmonary disease, unspecified; J45.909 Unspecified asthma, uncomplicated; K21.9 Gastro-esophageal reflux disease without esophagitis; E78.5 Hyperlipidemia, unspecified; M19.90 Unspecified osteoarthritis, unspecified site; G47.33 Obstructive sleep apnea (adult) (pediatric); E11.22 Type 2 diabetes mellitus with diabetic chronic kidney disease; I12.9 Hypertensive chronic kidney disease with stage 1 through stage 4 chronic kidney disease, or unspecified chronic kidney disease; N18.9 Chronic kidney disease, unspecified; Z79.82 Long term (current) use of aspirin; Z79.899 Other long term (current) drug therapy; Z82.49 Family history of ischemic heart disease and other diseases of the circulatory system; Z83.3 Family history of diabetes mellitus; Z99.89 Dependence on other enabling machines and devices; Z98.890 Other specified postprocedural states
CPT/HCPCS: 80048; 82962; 85014; 85018; 93005; J2250; J3010